=== PATIENT | male | born 1985 | race Caucasian/White ===

== ENCOUNTER 2024-04-19 12:46 | Emergency (ER) | payer OTHER, SELFPAY ==
[2024-04-19 12:52] VITALS: BP 144/89; PULSE 70; RESP 16; TEMP 36.6; O2SAT 97
--- NOTE | 2024-04-19 13:15 | DI.RAD_ITS ---
Exam(s) XR SHOULDER RT COMPLETE 2+V EXAM: XR SHOULDER RT COMPLETE 2+V CLINICAL HISTORY: right shoulder pain. TECHNIQUE: 2D digital imaging was performed of the right shoulder. Five images were obtained. AP, Grashey, Y-view and axillary views were obtained. COMPARISON: No exams were available for comparison FINDINGS: BONES: No acute fracture is present. No bony destructive lesion is seen. There is a well-circumscribe d benign-appearing cyst in the greater tuberosity. JOINTS: No dislocation present. Mild degenerative changes are seen at the acromioclavicular joint. T he glenohumeral joint is well maintained. SOFT TISSUE: There is a question of an infiltrate in the right lung base. IMPRESSION: 1. No acute fracture or dislocation. 2. Mild degenerative changes at the AC joint. 3. Question of a small infiltrate in the right lung base. DATA REPOSITORY: RADIATION DOSE DELIVERED:
--- NOTE | 2024-04-19 15:49 | W.ED.GENAD ---
Discharge Plan Disposition Patient Disposition: Home Discharge Details Clinical Impression: Rupture of distal biceps tendon Primary Care Provider: Unknown,Unknown ED Provider: Yazmin Munguia Home Meds and New Rx's Prescriptions: No Action No Known Home Meds Discharge Instructions Instructions: Biceps Tendon Rupture (DC) Additional Instructions: use the sling for the next week during day continue to range shoulder so it does not become frozen you will need reassessment by orthopedics this week, please follow-up (they will likely call you this week) you will/may need surgery if you don't regain range of motion or strength rest, no heavy lifting or repetitive motion motrin/tylenol as needed for pain Stand Alone Forms: Work Release Referrals: Keith Prado MD [ [facility] STAFF PHYSICIAN] - 2 days Discharge Data Discharge Date/Time-TO BE ENTERED AT DEPARTURE: 04/19/24 15:13 HPI General Date/Time Provider Initiated Documentation: 04/19/24 13:02. HPI Narrative: This 39-year-old male presents with right arm pain after he pulled on an object several days prior to arrival. He states that he has some bruising in his arm and a small bulge. He denies any additional trauma at that time. He states he is right-hand dominant he has been doing a lot of repetitive motion as he just started working for [employer]. Denies any additional falls or trauma. States arm feels slightly weak. Related Data Home Medications ?Medication ?Instructions ?Recorded ?Confirmed Unknown [No Known Home Meds] 04/19/24 04/21/24 Allergies Allergy/AdvReac Type Severity Reaction Status Date / Time Penicillins Allergy Unknown Verified 04/21/24 14:03 General Stated Complaint: Orthopedic GERALDO: 4 Exam Narrative Exam Narrative: This 39-year-old male presents with right arm injury. He has an obvious deformity to his right bicep, I suspect distal bicep injury. Neurovascularly he is intact. He has some bruising at the bicep insertion site. Course Vital Signs Vital signs: Vital Signs Temperature 36.6 C 04/19/24 12:52 Pulse 70 04/19/24 12:52 Respiratory Rate 16 04/19/24 12:52 Blood Pressure 144/89 H 04/19/24 12:52 Pulse Oximetry 97 04/19/24 12:52 Temperature 36.6 C 04/19/24 12:52 Pulse 70 04/19/24 12:52 Respiratory Rate 16 04/19/24 12:52 Respiratory Effort Normal 04/19/24 12:56 Blood Pressure 144/89 H 04/19/24 12:52 Pulse Oximetry 97 04/19/24 12:52 Pain Level 6 04/19/24 12:52 Medical Decision Making 39-year-old male in no acute distress with suspected distal bicep rupture. X-ray of shoulder does not show evidence of acute abnormality per radiology interpretation my review. Patient is placed in a sling and referred to orthopedics for possible repair. Neurovascularly intact. Return precautions reviewed and patient expressed understanding. Quality:SDOH Health Related Social Needs: No Data to Display PFSH All Active Problems (Updated 04/21/24 @ 14:31 by Keith Prado MD) Rupture of right proximal biceps tendon (Acute 04/18/24) Social History (Updated 04/21/24 @ 14:06 by Evita Velásquez RN, RN) Smoking/Tobacco Use Status: Former Tobacco Use Smoking risk assessment performed?: Yes Alcohol Intake: current Alcohol Intake frequency: a few times a month Drug use: Daily Substance use type: marijuana
--- NOTE | 2024-04-20 07:16 | NUR.NOTE ---
Access chart to confirm that referral was done. Nursing Note:
== END 2024-04-19 15:13 | disposition home or self-care (01) ==
PROVIDERS: Emergency Provider Physician Assistant
DX: S46.211A Strain of muscle, fascia and tendon of other parts of biceps, right arm, initial encounter (principal); Z87.891 Personal history of nicotine dependence; X50.9XXA Other and unspecified overexertion or strenuous movements or postures, initial encounter; Y93.89 Activity, other specified
CPT/HCPCS: 99283; 73030

== ENCOUNTER 2024-04-21 15:31 | Outpatient (CLI) | payer OTHER, SELFPAY ==
--- NOTE | 2024-04-21 15:11 | DI.RAD_ITS ---
Exam(s) XR CHEST 2V PA LATERAL EXAM: XR CHEST 2V PA LATERAL CLINICAL HISTORY: evaluate lung status TECHNIQUE: 2D digital imaging was performed. Two views. COMPARISON: No exams were available for comparison FINDINGS: HEART: Normal size. Aorta: Not dilated. PULMONARY VASCULATURE: Normal. MEDIASTINUM: Unremarkable. LUNGS: increased densities at the right lung base which could represent pneumonia. Left lung is clear . PLEURAL SPACE: Small right pleural effusion. Question no pneumothorax. BONE:Unremarkable for age. SOFT TISSUES: Unremarkable. IMPRESSION: Small right pleural effusion. Patchy densities at the right lung base could indicate pneumonia. DATA REPOSITORY: RADIATION DOSE DELIVERED:
== END 2024-04-21 15:32 | disposition home or self-care (01) ==
LOC: DIORS 15:31
PROVIDERS: Visit Provider Student in an Organized Health Care Education/Training Program
DX: R91.8 Other nonspecific abnormal finding of lung field (principal)
CPT/HCPCS: 71046

== ENCOUNTER 2024-04-22 01:59 | Outpatient (CLI) | payer OTHER, SELFPAY ==
--- NOTE | 2024-04-22 10:15 | DI.MRI_ITS ---
Exam(s) MR UPPER JOINT RT WO EXAM: MR UPPER JOINT RT WO CLINICAL HISTORY: EVAL BICEPS FOR SURGERY,RUPTURE RT PROX BICEPS TENDON,STRAIN,S46.211A,. TECHNIQUE: Multiplanar multisequence MRI was performed. COMPARISON: Plain films 19 April 2024 FINDINGS: Exam limited by motion. BONES: There is no fracture or contusion pattern. Cyst in region of greater tuberosity. JOINTS:The acromioclavicular joint shows mild spurring. The glenohumeral joint is normal. TENDONS: Supraspinatus: Unremarkable. Infraspinatus: Unremarkable. Subscapularis: Unremarkable. Teres [place]: Unremarkable. Biceps and [place]: Biceps tendon is torn and retracted to the level of the proximal humeral shaft. Ed aspen and biceps anchor. MUSCLES: Edema in the upper biceps muscle and surrounding the biceps tendon. GLENOID LABRUM: Unremarkable on this noncontrast examination. SOFT TISSUES: Unremarkable. OTHER: Subacromial and subdeltoid bursae . IMPRESSION: Full-thickness tear with retraction of the biceps tendon. DATA REPOSITORY:
== END 2024-04-22 02:19 ==
PROVIDERS: Visit Provider Student in an Organized Health Care Education/Training Program
DX: S46.211A Strain of muscle, fascia and tendon of other parts of biceps, right arm, initial encounter (principal); X58.XXXA Exposure to other specified factors, initial encounter
CPT/HCPCS: 73221

== ENCOUNTER 2024-04-24 08:52 | Day surgery (SDC) | payer OTHER, SELFPAY ==
[2024-04-24] VITALS (45 sets, daily range): BP systolic 101–135; BP diastolic 53–84; PULSE 45–64; RESP 5–19; TEMP 36.1–36.7; O2SAT 93–99; BMI 28.3
--- NOTE | 2024-04-24 07:10 | W.PM.DSUDISC ---
Date of service: 04/24/24 Time of Service: 12:00 Discharge Plan Disposition Patient Disposition: Home Condition: Stable Discharge Details Attending Provider: Keith Prado Primary Care Provider: None,None Home Meds and New Rx's Prescriptions: New naproxen 250 mg tablet 250 - 500 mg PO BID PRN (Reason: moderate pain and swelling) Qty: 40 0RF oxycodone 5 mg tablet 5 - 10 mg PO .q4-6h MDD 30 mg PRN (Reason: severe pain) Qty: 5 0RF Discharge Instructions Additional Instructions: Surgery: Right shoulder arthroscopy with extensive debridement, subacromial decompression, and open biceps tenodesis Activity: You should gradually increase range of motion motion and use of your shoulder. You may use your shoulder for all regular activities while protecting biceps repair. Avoid any weighted elbow flexion or resisted supination for 6-8 weeks. No heavy lifting, reaching overhead, or lifting away from body for approximately 2-3 months. You may use the sling whenever you are out of the house for a few weeks. At home it is best to remove the sling and rest the arm on a pillow at your side or support the operative side with your other hand. A physical therapy prescription will be sent electronically to start in about 3 weeks. Return to work guidelines: No use of Right shoulder for 2-3 months postop: No weight bearing, carrying, lifting, or reaching. May return to work and use hand for gentle manual tasks like writing/typing when comfortable (typically 1-2 weeks). Sling for protection at work unless seated for 6 weeks. Anticipate light duty at 3 months, moderate at 4 months, and heavy at 6 months. Prescriptions: Naproxen 250 mg take 1-2 every 12 hours with a meal as needed for moderate pain Oxycodone 5 mg take 1-2 every 4-6 hours as needed for severe pain You may use [id number] Tylenol (acetaminophen) as needed for mild pain. These pain medications may be taken all at once or in different combinations as needed. Also, recommend Colace (docusate) as a stool softener as surgery and pain medicine cause constipation. You may try [id number] diphenhydramine (Benadryl) 25-50 mg nightly as a sleep aid Dressings: Remove shoulder bandage after 3 days. Leave the sticky Steri-Strips in place until they fall off or remove them after you shower. Cover the incisions with Band-Aids or leave them open to air. The biceps bandage (inside upper arm) is glued on separately. You may leave this one on a few days longer if it is difficult to remove. There is also glue underneath this bandage that can be left in place until it peels off. You may shower after 5 days. Follow-up: 10-[address] Prado You may take off the leg compression stockings this evening at home. You may also leave them on a few days longer if you have a history of leg swelling or edema. Let us know right away if you develop any redness, drainage, fevers, chest pain, or trouble breathing. Do not drink alcohol or drive for at least 24 hours after anesthesia. Please call the office during business hours with any questions or concerns. Discharge Orders Discharge Orders: Discharge Order (Routine); Ordered 04/24/24 Ordered By: Gretel Taylor DS: Diagnosis Discharge Diagnosis (1) Rupture of right proximal biceps tendon: Status: Acute
--- NOTE | 2024-04-24 07:15 | ROE_ITS ---
Date of service: 04/24/24 Time of Service: 12:00 Operative Note Operative Note DATE OF PROCEDURE: 04/24/24 PRE-OP DIAGNOSIS: Right: 1. Proximal biceps rupture POST-OP DIAGNOSIS: same Right: 1. Proximal biceps rupture 2. Partial articular supraspinatus rotator cuff tear PROCEDURE: Right: 1. Open biceps tenodesis, CPT# 73940. This involved reattaching the long head of the biceps tendon to the proximal humerus in the sub-pectoral area of the bicipital groove at the correct tension. 2. Extensive debridement, CPT# 82299. This involved using arthroscopic hand ins truments, power instruments, and radiofrequency instruments to debride areas of superior labral tearing, SLAP tearing and biceps tendon stump anchor remnant, rotator interval synovitis, subacromial bursitis, and partial articular supraspinatus rotator cuff tearing. The sales office assistant was medically required in order to help assist in techniques above, which require positioning the arm, holding the arthroscope, and manipulating multiple instruments and sutures at the same time. This cannot be done without the help of an experienced sales office assistant. SURGEON: Keith Prado LANCE CREWMEMBER/MLRS SERGEANT: Gretel Taylor ANESTHESIA TYPE: General LMA/ETT and Primary Nerve Block Refer to Anesthesia Record ESTIMATED BLOOD LOSS: 5 PATHOLOGY: none sent COMPLICATIONS: None Patient was transported to: PACU Patient's condition: stable Implants: Arthrex: Unicortical Proximal Biceps Tenodesis Button Indications: The patient was diagnosed with the above conditions and appropriately indicated for surgical intervention. Please see complete medical record for details. Findings: Exam under anesthesia: Obvious Fito deformity, full shoulder range of motion Glenohumeral joint: Significant anterior and superior synovitis with frayed biceps tendon stump remnant and obvious SLAP tear. Anterior labral fraying. Intact subscapularis. Posterior articular supraspinatus flap capsular layer with some mild to moderate tendon defect and a small region posterior supr aspinatus without any significant footprint exposed. Did not probe through to the bursal space. Subacromial space: Moderate bursitis. No bursal rotator cuff tear. Procedure Description: In the operating room, general anesthesia was induced. Bilateral shoulders were examined. The patient was positioned in the beachchair position. All bony pro minences were well-padded. Preoperative antibiotics were administered. The shoulder was prepped and draped in the usual sterile fashion. The correct patient, procedure, and side of the procedure were all verified prior to incision. 10 cc of 0.25% bupivacaine with epinephrine was infiltrated about a 3 cm longitudinal incision at the inferior margin of the pectoralis major localized over the long head of the biceps tendon. Blunt and sharp dissection were used to expose the tendon in the bicipital groove. The tendon was brought out of the wound and kept off the skin on top of a blue towel. The correct location for sub-pectoral fixation was localized, prepped with a rasp, and then drilled with a 3.2 mm drill pin in a unicortical fashion. Using a fiber loop suture the tendon was prepped from the musculotendinous junction a few centimeters proximal. The excess tendon was amputated. The free suture ends were then passed through the unicortical button implant. The drill pin was removed and the implant was placed into the humeral intramedullary canal. The button was flipped and the sutures were tensioned bringing the tendon down to bone. Tension and fixation were then tested and found to be appropriate. The suture tails were passed on either end of the tendon and then tied compressing tendon to bone. The wound was copiously irrigated with normal saline. Moist sponge placed in the wound. Starting through the posterior portal a standard complete diagnostic arthroscopy was performed of the glenohumeral joint including inspection of the long head of the biceps, anterior and superior labrum, subscapularis tendon, supraspinatus and infraspinatus tendons, and axillary recess. The glenoid and humeral head cartilage as well as the posterior labrum were inspected from an anterior viewing portal. Significant findings and interventions noted above. Of note, extensive debridement of superior labrum SLAP tear biceps anchor fraying. Subscapularis intact. Unusual thin articular sided complex posterior supraspinatus tearing that did not probe into the bursal side. Did not probe from bursal into the articular side with no significant bursal sided tearing. Trimmed and debrided loose edges capsular layer. Some intrasubstance degeneration maybe focally 25-50% relatively small area. Not a tear pattern amenable really to any repair. Despite young age, debridement best option for tendon defect without clear ability to repair [id number] or back to bone. High risk for progressive rotator cuff disease given this borderline tear and the large subchondral bone cyst on MRI. Low threshold to recheck MRI subsequently for healing or progression. The shoulder was drained of arthroscopic fluid. All portal sites were copiously irrigated. The biceps incision was irrigated again and subcutaneous tissue was closed using 3-0 Monocryl in a buried interrupted fashion. Skin was closed using 3-0 Monocryl in a buried subcuticular running fashion. Skin glue was a pplied over the incision. Mastisol was applied about the incision. The incision was covered with Telfa, gauze, and covered with a Tegaderm dressing. The portals incisions were closed using 3-0 Monocryl in a buried fashion and then covered with Mastisol, Steri-Strips, Xeroform, dry gauze, and ABDs. The dressings were covered and secured with Medipore tape. The operative extremity was placed into a sling for immobilization. The patient awoke from anesthesia without complication and was transferred to the recovery room in a stable condition.
[2024-04-24] MEDS: Lactated Ringers 1,000 ML 30 ML IV (09:44)
--- NOTE | 2024-04-24 11:01 | W.ANESPRE ---
General Info Date of Service Date Performed: 04/24/24 Height: 5 ft 5 in Weight: 77.1 kg Body Mass Index (BMI): 28.3 Surgical Procedure: Operation Date: 04/24/24 10:55 Proposed Procedure Side Surgeon p Shoulder Possible Rotator Cuff Arthroscopic w/Extensive Debridement, Open Biceps Tenodesis Keith Prado MD Meds Allergies and Home Medications Allergies Allergy/AdvReac Type Severity Reaction Status Date / Time Penicillins Allergy Other (See Verified 04/24/24 09:13 Comment) Home Medication ?Medication ?Instructions ?Recorded Unknown [No Known Home Meds] 04/19/24 Current Visit Medications: Current Medications Generic Name Dose Route Start Last Admin Trade Name Freq PRN Reason Stop Dose Admin Ringer's Solution 1,000 mls @ 30 mls/hr 04/24/24 06:00 04/24/24 09:44 IV 04/24/24 23:59 30 mls/hr INFUSION ROCK Administration Cefazolin Sodium/Dextrose 2 gm in 50 mls @ 100 mls/hr 04/24/24 06:00 Ancef Duplex IVPB 04/24/24 23:59 PREOP ROCK Tranexamic Acid/Sodium Chloride 1,000 mg in 100 mls @ 600 mls/hr 04/24/24 06:00 IVPB 04/24/24 23:59 PREOP ROCK IV Miscellaneous Supplies 1 each 04/24/24 06:00 Iv Access IV 04/24/24 23:59 DIRECTED ROCK Oxycodone HCl 0 mg 04/24/24 07:10 Oxycodone 5 Mg Tab PO 05/24/24 07:09 Q3H PRN PRN Pain Sodium Chloride 0 ml 04/24/24 06:00 Normal Saline Flush 10 Ml Syr IV 04/24/24 23:59 PRN PRN Sodium Chloride 0 ml 04/24/24 06:00 Normal Saline 10 Ml Vial IJ 04/24/24 23:59 DIRECTED PRN Sterile Water 0 ml 04/24/24 06:00 Water,Injection,Sterile 10 Ml Vial IJ 04/24/24 23:59 DIRECTED PRN PFSH Active Problems Active Problems: Problem Status Onset Code Right pulmonary lesion Acute J98.4 Rupture of right proximal biceps tendon Acute 04/18/24 S46.211A Medical History Medical History Other injury of muscle, fascia and tendon of long head of biceps, right arm, initial encounter Surgical History Surgical History Hx of wisdom tooth extraction Tobacco Smoking/Tobacco Use Status: Former Tobacco Use Alcohol Alcohol Intake: current Alcohol intake frequency: a few times a month Substance Use Substance use: Daily Substance use type: marijuana Vital Signs and Lab Results Vital Signs Most Recent Vital Signs in EMR: Most Recent Vital Signs Temp Pulse Resp BP Pulse Ox 36.4 C L 59 L 18 132/84 99 04/24/24 09:15 04/24/24 09:15 04/24/24 09:15 04/24/24 09:15 04/24/24 09:15 Lab Results Blood Type / Crossmatch: No Data to Display Complete Blood Count: No Data to Display Complete Metabolic Panel: No Data to Display Liver Function Panel: No Data to Display Coagulation Panel: No Data to Display Cardiac Panel: No Data to Display Arterial Blood Gas: No Data to Display Venous Blood Gas: No Data to Display Pancreas Panel: No Data to Display Thyroid Panel: No Data to Display Infectious Disease: No Data to Display Blood Cultures: No Data to Display Toxicology Panel: No Data to Display Anesthesia Assessment and Plan Anesthesia History Personal History: Other Family History: No Family History of Anesthesia Complications Exercise Tolerance Exercise Tolerance: Metabolic Equivalents>4 Pertinent Negatives Pertinent Negatives: No Symptoms of GERD Cardiac & Pulmonary Exam Cardiac Exam: Normal S1/S2 Heart Sounds Pulmonary Exam: Clear Bilateral Breath Sounds Implantable Cardiac Device Does patient have a Pacemaker or an ICD?: No Airway Exam Known Difficult Airway: No Mallampati Class: 1 Mouth Opening: Normal (> 3cm) Thyromental Distance: Greater than 3 cm Neck Range of Motion: Full ROM Neck Circumference: Normal Teeth Condition: Normal Dentition ASA Classification ASA Score: ASA 2 Emergency Case?: No NPO Status NPO Status: NPO Clears >2 hours, Solids >8 hours Anesthesia Plan Resuscitation Status: Full Code Anesthesia Technique: General Anesthesia Airway Planned: Endotracheal Tube Pain Management: Surgeon and patient request nerve block Monitors Used: Standard Monitors
[2024-04-24] MEDS: ceFAZolin 2 GM/50 ML BAG IVPB (12:26)
[2024-04-24] MEDS: TRANEXAMIC ACID/SOD. CHL. 1,000 MG/100 ML BAG 600 MG IVPB (12:27)
--- NOTE | 2024-04-24 12:39 | W.ANESNERVE ---
Nerve Block Single Injection Procedure Date and Time Date Performed: 04/24/24 Procedure Start: 11:48 Location Where Procedure Performed Procedure Location: Day Surgery Unit Reason Performed: Postoperative Analgesia Requesting Provider: Keith Prado Timeout Performed Timeout Performed: Yes Monitoring Used ECG, Blood Pressure, SpO2 and See EMR for corresponding vital signs Sterility Sterility: Hand Hygiene, Surgical Cap, Surgical Mask, Sterile Gloves and Chlorhexidine Sedation Given During Procedure Sedation Given (Indicate Dose Given): Versed IV Dose:: 2mg Patient Mental Status Patient Mental Status: Sedate with meaningful communication Nerve Block 1st Nerve Block: Laterality: Right Block Type: Supraclavicular Ultrasound Image Saved?: Yes Needle / Catheter Used: 100mm SonoPlex II Local Anesthetic Bolus (Indicate Dose Given): Lidocaine used for local infiltration of skin, Injected in 3-5ml increments after negative blood aspiration, Bupivacaine 0.5% Dose:: 10ml and Exparel Dose:: 10ml Additives (Indicate Dose Given): None Ultrasound: Sterile probe cover and gel used Nerve Stimulator: Supplement to Ultrasound use and No twitch or parasthesia noted < 0.5 mA Paresthesia: None Procedure Tolerated: No Complications and Patient tolerated well Procedure Outcome: Successful Performed By: George Liao
[2024-04-24] MEDS: Bupivacaine 0.25% Pres-Free W/EPI 30 ML VIAL (12:44)
[2024-04-24] MEDS: EPINEPHrine 10 MG/10 ML ML (13:34)
--- NOTE | 2024-04-24 23:17 | W.ANESPOSTOP ---
Postoperative Evaluation Date, Time and Location Date Performed: 04/24/24 Time Performed: 16:00 Patient Location: Day Surgery Unit Vital Signs Most Recent Imported Vital Signs: Most Recent Vital Signs Temp Pulse Resp BP Pulse Ox 36.3 C L 60 18 123/69 97 04/24/24 16:00 04/24/24 16:00 04/24/24 16:00 04/24/24 16:00 04/24/24 16:00 Pain Score Most Recent Pain Score: Most Recent Pain Score Pain Level 0 04/24/24 16:00 Assessment Mental Status: Awake (Alert & Oriented to Patient Baseline) Airway and Respiratory Function: Patent airway with normal (patient baseline) respiratory exam Cardiovascular Function: Hemodynamically Stable Hydration Status: Adequately Hydrated Nausea & Vomiting: No Nausea or Vomiting Pain: Pt. Denies Any Pain Peripheral Nerve Block: Regional nerve block not resolved at time of post operative discharge
== END 2024-04-24 16:05 | disposition home or self-care (01) ==
PROVIDERS: Visit Provider Student in an Organized Health Care Education/Training Program
PROC: (CPT 29827; principal; 2024-04-24 10:45)
DX: S46.211A Strain of muscle, fascia and tendon of other parts of biceps, right arm, initial encounter (principal); M75.111 Incomplete rotator cuff tear or rupture of right shoulder, not specified as traumatic; X58.XXXA Exposure to other specified factors, initial encounter
CPT/HCPCS: 23430; 29823; 76942; C9290; J0665; J0690; J1100; J2001; J2250; J2405; J2704